=== PATIENT | female | born 1970 | race Caucasian/White ===

== ENCOUNTER 2021-12-05 12:12 | Emergency (ER) | payer OTHER, MEDICAID, SELFPAY ==
--- NOTE | ~2021-12-05 | XR_ITS ---
EXAMINATION: XR CHEST CLINICAL INFORMATION: Shortness of breath, cough and weakness COMPARISON: None TECHNIQUE: 2 views of the chest were obtained. FINDINGS: No significant abnormality is noted involving the heart, lungs, mediastinum, bony thorax or soft tissues. XR/XR chest 2V IMPRESSION: Unremarkable examination.
[2021-12-05 13:16] VITALS: BP 144/82; PULSE 84; RESP 16; TEMP 36.1; O2SAT 97; BMI 23.1
[2021-12-05 13:53] LABS: COVID-19 Test Negative (Negative); IDNOW Serial# 16C4AD1C
[2021-12-05 14:08] LABS: Strep A Nucleic Acid Negative (Negative)
[2021-12-05 14:34] LABS: MANUAL DIFF FLAG NO
[2021-12-05 14:39] LABS: Basophils Percent Auto 0.4 % (0-2); Eosinophils Absolute Auto 0.2 X10*3/uL (0.0-0.4); Eosinophils Percent Auto 4.8 % (0-4); Hematocrit 39.2 % (37.0-47.0); Hemoglobin 12.8 g/dl (12.0-16.0); Imm Gran Abs Auto 0.01 X10*3/uL (0.00-0.03); Imm Gran Pct Auto 0.2 % (0.0-0.4); Lymphocytes Absolute Auto 1.7 X10*3/uL (1.2-4.9); Lymphocytes Percent Auto 36.4 % (20-40); Mean Corpuscular HGB Conc 32.7 g/dl (31.0-35.0); Mean Corpuscular Hemoglobin 28.6 pg (27.0-33.0); Mean Corpuscular Volume 87.7 fL (80.0-98.0); Mean Platelet Volume 9.1 fL (9.4-12.3); Monocytes Absolute Auto 0.3 X10*3/uL (0.1-1.2); Monocytes Percent Auto 6.6 % (2-11); Neutrophils Absolute Auto 2.4 x10*3/uL (2.0-8.3); Neutrophils Percent Auto 51.6 % (45-73); Platelet Count 186 X10*3/uL (160-400); Red Blood Count 4.47 X10*6/uL (4.20-5.50); Red Cell Distribution Width 13.7 % (11.0-16.0); White Blood Count 4.6 X10*3/uL (4.8-10.8)
[2021-12-05 14:55] LABS: Anion Gap 11 (12-20); Blood Urea Nitrogen 13 mg/dL (9-16); Calcium 8.9 mg/dL (8.4-10.2); Carbon Dioxide 26 mmol/L (22-29); Chloride 105 mmol/L (96-108); Creatinine Clr Calc Pharmacy 59.8; Estimated Glomerular Filt Rate > 60; Glucose Random 122 mg/dL (60-115); Potassium 4.1 mmol/L (3.3-5.1); Sodium 138 mmol/L (135-145)
[2021-12-05 16:36] VITALS: BP 141/81; PULSE 77; RESP 16; O2SAT 98
[2021-12-05 18:10] VITALS: BP 153/79; PULSE 90; RESP 18; TEMP 37.4; O2SAT 98; O2SAT 99
[2021-12-05] MEDS: predniSONE 20 MG TABLET 40 MG PO (18:12)
[2021-12-05 18:14] VITALS: PULSE 87; RESP 20; O2SAT 99
[2021-12-05] MEDS: Albuterol Sulfate (0.083%) 2.5 MG/3 ML VIAL.NEB 5 MG INHALE (18:14)
[2021-12-05] MEDS: Albuterol/Iprat 2.5/0.5MG 3 ML AMPUL.NEB INHALE (18:14)
--- NOTE | 2021-12-05 18:24 | ED.URI ---
HPI - URI/Sore Throat General Chief Complaint: Upper Respiratory Symptoms Stated Complaint: possible Pneumonia Time Seen by Provider: 12/05/21 18:00 Source: patient and family Mode of arrival: ambulatory Limitations: no limitations History of Present Illness HPI Narrative: 51-year-old female came in for evaluation of sore throat and coughing. Patient's symptoms started with sore throat, coughing, generalized body ache, chest tightness and wheezing, and headache symptoms started over 2 weeks ago, patient was exposed to a sick contact that was diagnosed with pneumonia, patient also been complaining of chest pain only with coughing, no recent travel, no lower extremity swelling or tenderness, no history of blood clots. Patient was seen at an urgent care a week ago and was started on a course of Z-Oswaldo antibiotic with temporary improvement. Patient is here today for further evaluation. Related Data Previous Rx's Medication Instructions Recorded albuterol sulfate 90 mcg/actuation 1 inh INHALATION QID PRN #8.5 g 12/05/21 aerosol inhaler (ProAir HFA) azithromycin 250 mg tablet See Rx Instructions .ROUTE 12/05/21 (Zithromax Z-Oswaldo) .COMPLEX #6 tab prednisone 20 mg tablet 20 mg PO BID #8 tab 12/05/21 Allergies Allergy/AdvReac Type Severity Reaction Status Date / Time No Known Allergies Allergy Unverified 03/28/20 19:42 [No Known Allergies*] Review of Systems Review of Systems: All other systems are reviewed and are negative Constitutional: Reports as per HPI and Reports no additional constitutional complaints Eyes: Reports as per HPI and Reports no additional eye complaints Reports system reviewed and no additional complaints, except as documented Cardiovascular: Reports as per HPI and Reports no additional cardiovascular complaints Respiratory: Reports as per HPI and Reports no additional respiratory complaints Gastrointestinal: Reports as per HPI and Reports no additional gastrointestinal complaints Genitourinary: Reports no additional female genitourinary complaints Musculoskeletal: Reports no additional musculoskeletal complaints Skin/Breast: Reports system reviewed and no additional complaints, except as docu Psychiatric: Reports no additional psychiatric complaints Endocrine: Reports no additional endocrine complaints Hematologic/Lymphatic: Reports no additional hematologic/lymphatic complaints Allergic/Immunologic: Reports no additional allergic/immunologic complaints Reports system reviewed and no additional complaints, except as documented and Reports Abnormal speech present [facility] Social History Social History Advance Directives: No Advance Directives Information Provided: No Physical Exam Vital Signs: Vital Signs: Last Vital Signs Temp 99.3 F 12/05/21 18:10 Pulse 87 12/05/21 18:14 Resp 20 12/05/21 18:14 BP 153/79 H 12/05/21 18:10 Pulse Ox 99 12/05/21 18:10 BMI result Body Mass Index 23.1 Vital signs have been reviewed as appeared to be correct. Blood pressure normal. Heart rate normal. Respiration rate normal. Temperature normal. Oxygen saturation normal. Appearance: Alert. Oriented X3. No acute distress. Head: Normal external exam. Normocephalic. Atraumatic. No Ramos signs noted. No raccoon eyes noted Eyes: PERRLA. EOMI. Conjunctiva and sclera normal. Eyelids normal. ENT: TM's Normal. Pharynx normal. Uvula midline. Moist mucous membranes. No trismus noted. No drooling noted. No muffled voice noted. Neck: Normal inspection. Neck supple. FROM. No adenopathy. Thyroid Normal. No meningeal signs. No neck mass noted. CVS: Normal heart rate and rhythm. Heart sound normal. No murmurs noted. Pulses normal throughout. Respiratory: No respiratory distress. Painless inspiration. Breath sounds normal. Mild diffuse expiratory wheezing with prolonged expiration. Chest nontender. No accessory muscle usage noted or decreased air movement noted. Abdomen: Soft and nontender. Bowel sounds normal in all 4 quadrants. No distention noted. No organomegaly noted. No visible injury noted. Back: No CVA tenderness. Full range of motion noted. Skin: Skin warm and dry. Normal skin color. Normal skin turgor. No rashes/lesions/lacerations noted. Extremities: No lower extremity edema. Extremities exhibit normal range of motion. Extremities nontender. Neuro: Oriented X 3. Cranial nerve exam: II-XII are grossly intact No motor deficit. No sensory deficit. Reflexes normal. Course Course Course Narrative: Assessment and plan. 51-year-old female came in with coughing, chest pain only with coughing, tightness and shortness of breath. Recent exposure to a sick contact with pneumonia. 1. Chest x-ray is negative for pneumonia. 2. Negative for viral respiratory panel. 3. Patient is nonsmoker no known history of COPD/asthma or emphysema. 4. At low risk for PE with negative D-dimer. 5. Exam is more consistent with bronchitis will start the patient on bronchodilator/prednisone/course of Z-Oswaldo. Patient showed improvement after bronchodilator/prednisone in the emergency department. MDM - URI/Sore Throat Lab Data Attestation: I reviewed the patient's lab results. Result diagrams: 12/05/21 14:27 12/05/21 14:27 Labs: Lab Results 12/05/21 12/05/21 12/05/21 Range/Units 13:30 13:30 14:27 WBC 4.6 L (4.8-10.8) X10*3/uL RBC 4.47 (4.20-5.50) X10*6/uL Hgb 12.8 (12.0-16.0) g/dl Hct 39.2 (37.0-47.0) % MCV 87.7 (80.0-98.0) fL MCH 28.6 (27.0-33.0) pg MCHC 32.7 (31.0-35.0) g/dl RDW 13.7 (11.0-16.0) % Plt Count 186 (160-400) X10*3/uL MPV 9.1 L (9.4-12.3) fL Immature Gran % (Auto) 0.2 (0.0-0.4) % Neut % (Auto) 51.6 (45-73) % Lymph % (Auto) 36.4 (20-40) % Zapata % (Auto) 6.6 (2-11) % Eos % (Auto) 4.8 H (0-4) % Baso % (Auto) 0.4 (0-2) % Lymph # (Auto) 1.7 (1.2-4.9) X10*3/uL Zapata # (Auto) 0.3 (0.1-1.2) X10*3/uL Eos # (Auto) 0.2 (0.0-0.4) X10*3/uL Baso # (Auto) 0.0 (0.0-0.2) X10*3/uL Abs Immat Gran (auto) 0.01 (0.00-0.03) X10*3/uL Absolute Neuts (auto) 2.4 (2.0-8.3) x10*3/uL Absolute Nucleated RBC 0.000 (0.0-0.012) X10*3/uL Nucleated RBC % (auto) 0.0 (0.0-0.2) /100WBC D-Dimer High Sensitivty NG/ML Sodium (135-145) mmol/L Potassium (3.3-5.1) mmol/L Chloride (96-108) mmol/L Carbon Dioxide (22-29) mmol/L Anion Gap (12-20) BUN (9-16) mg/dL Creatinine (0.5-1.4) mg/dL Estim Creat Clear Calc Estimated GFR Random Glucose (60-115) mg/dL Calcium (8.4-10.2) mg/dL Troponin I High Sens (<3.5-17.0) ng/L COVID-19 (JUAN ALBERTO) Negative (Negative) COVID-19 Clin Com See Note Influenza Type A (PCR) (Negative) Influenza Type B (PCR) (Negative) RSV RNA Qual (PCR) (Negative) SARS-CoV-2 RNA (RT-PCR) (Negative) S. pyogenes GrpA JUAN Negative (Negative) 12/05/21 12/05/21 12/05/21 Range/Units 14:27 18:32 18:32 WBC (4.8-10.8) X10*3/uL RBC (4.20-5.50) X10*6/uL Hgb (12.0-16.0) g/dl Hct (37.0-47.0) % MCV (80.0-98.0) fL MCH (27.0-33.0) pg MCHC (31.0-35.0) g/dl RDW (11.0-16.0) % Plt Count (160-400) X10*3/uL MPV (9.4-12.3) fL Immature Gran % (Auto) (0.0-0.4) % Neut % (Auto) (45-73) % Lymph % (Auto) (20-40) % Zapata % (Auto) (2-11) % Eos % (Auto) (0-4) % Baso % (Auto) (0-2) % Lymph # (Auto) (1.2-4.9) X10*3/uL Zapata # (Auto) (0.1-1.2) X10*3/uL Eos # (Auto) (0.0-0.4) X10*3/uL Baso # (Auto) (0.0-0.2) X10*3/uL Abs Immat Gran (auto) (0.00-0.03) X10*3/uL Absolute Neuts (auto) (2.0-8.3) x10*3/uL Absolute Nucleated RBC (0.0-0.012) X10*3/uL Nucleated RBC % (auto) (0.0-0.2) /100WBC D-Dimer High Sensitivty < 150 NG/ML Sodium 138 (135-145) mmol/L Potassium 4.1 (3.3-5.1) mmol/L Chloride 105 (96-108) mmol/L Carbon Dioxide 26 (22-29) mmol/L Anion Gap 11 L (12-20) BUN 13 (9-16) mg/dL Creatinine 0.94 (0.5-1.4) mg/dL Estim Creat Clear Calc 59.8 Estimated GFR > 60 Random Glucose 122 H (60-115) mg/dL Calcium 8.9 (8.4-10.2) mg/dL Troponin I High Sens < 3.5 (<3.5-17.0) ng/L COVID-19 (JUAN ALBERTO) (Negative) COVID-19 Clin Com Influenza Type A (PCR) (Negative) Influenza Type B (PCR) (Negative) RSV RNA Qual (PCR) (Negative) SARS-CoV-2 RNA (RT-PCR) (Negative) S. pyogenes GrpA JUAN (Negative) 12/05/21 Range/Units 18:35 WBC (4.8-10.8) X10*3/uL RBC (4.20-5.50) X10*6/uL Hgb (12.0-16.0) g/dl Hct (37.0-47.0) % MCV (80.0-98.0) fL MCH (27.0-33.0) pg MCHC (31.0-35.0) g/dl RDW (11.0-16.0) % Plt Count (160-400) X10*3/uL MPV (9.4-12.3) fL Immature Gran % (Auto) (0.0-0.4) % Neut % (Auto) (45-73) % Lymph % (Auto) (20-40) % Zapata % (Auto) (2-11) % Eos % (Auto) (0-4) % Baso % (Auto) (0-2) % Lymph # (Auto) (1.2-4.9) X10*3/uL Zapata # (Auto) (0.1-1.2) X10*3/uL Eos # (Auto) (0.0-0.4) X10*3/uL Baso # (Auto) (0.0-0.2) X10*3/uL Abs Immat Gran (auto) (0.00-0.03) X10*3/uL Absolute Neuts (auto) (2.0-8.3) x10*3/uL Absolute Nucleated RBC (0.0-0.012) X10*3/uL Nucleated RBC % (auto) (0.0-0.2) /100WBC D-Dimer High Sensitivty NG/ML Sodium (135-145) mmol/L Potassium (3.3-5.1) mmol/L Chloride (96-108) mmol/L Carbon Dioxide (22-29) mmol/L Anion Gap (12-20) BUN (9-16) mg/dL Creatinine (0.5-1.4) mg/dL Estim Creat Clear Calc Estimated GFR Random Glucose (60-115) mg/dL Calcium (8.4-10.2) mg/dL Troponin I High Sens (<3.5-17.0) ng/L COVID-19 (JUAN ALBERTO) (Negative) COVID-19 Clin Com Influenza Type A (PCR) NEGATIVE (Negative) Influenza Type B (PCR) NEGATIVE (Negative) RSV RNA Qual (PCR) NEGATIVE (Negative) SARS-CoV-2 RNA (RT-PCR) NEGATIVE (Negative) S. pyogenes GrpA JUAN (Negative) Imaging Data Chest x-ray: Attestation: I personally reviewed and interpreted this imaging study as follows: Radiologist's impression: Unremarkable examination. Discharge Plan Discharge Clinical Impression: Upper respiratory infection, Bronchitis Patient Disposition: Home, Self-Care Instructions: Acute Bronchitis (ED) Prescriptions: New prednisone 20 mg tablet 20 mg PO BID Qty: 8 0RF albuterol sulfate [ProAir HFA] 90 mcg/actuation HFA aerosol inhaler 1 inh inhalation QID PRN (Reason: shortness of breath or wheezing) Qty: 8.5 0RF azithromycin [Zithromax Z-Oswaldo] 250 mg tablet See Rx Instructions .ROUTE .COMPLEX Qty: 6 0RF Rx Instructions: For 250 mg dose pack: take 500 mg today (day 1), then 250 mg for 4 days (days 2-5) Referrals: Edil Patel MD [Primary Care Provider] - Stand Alone Forms: Work/School Release
[2021-12-05 19:08] LABS: Troponin-I High Sensitivity < 3.5 ng/L (<3.5-17.0)
[2021-12-05 19:20] LABS: Influenza A PCR NEGATIVE (Negative); Influenza B PCR NEGATIVE (Negative); Resp Syncy Virus RNA Qual PCR NEGATIVE (Negative); SARS COV2 PCR INHOUSE NEGATIVE (Negative)
[2021-12-05 19:36] LABS: D Dimer High Sensitivity < 150 NG/ML
[2021-12-05 20:03] VITALS: BP 127/72; PULSE 100; RESP 20; TEMP 37.1
== END 2021-12-05 20:31 | disposition home or self-care (01) ==
PROVIDERS: Emergency Provider Emergency Medicine; PCP Internal Medicine
DX: J06.9 Acute upper respiratory infection, unspecified (principal); J40 Bronchitis, not specified as acute or chronic; Z20.822 Contact with and (suspected) exposure to COVID-19; J02.9 Acute pharyngitis, unspecified
CPT/HCPCS: 0241U; 36415; 71046; 80048; 84484; 85025; 85379; 87635; 87651; 94640; 94644; 99284

== ENCOUNTER 2022-03-25 11:03 | Emergency (ER) | payer OTHER, SELFPAY ==
--- NOTE | ~2022-03-25 | XR_ITS ---
EXAMINATION: X-RAY LEFT ANKLE X-RAY LEFT CLINICAL INFORMATION: Fall, pain, swelling COMPARISON: None TECHNIQUE: Ankle 2 views. Foot 3 views. FINDINGS: Ankle: Lateral ankle soft tissue swelling. No acute fractures seen of the tibia or fibula. Ankle mortise is maintained. Talar head finding described below. No acute fracture is otherwise seen. Foot: Skin marker positioned lateral to the foot at the level of the cuboid. There is dorsal foot soft tissue swelling. There are ill-defined ossific densities positioned along the dorsal aspect of the talar head/talonavicular joint, slightly displaced from the underlying bone. This could represent an avulsion fracture, of indeterminate age. No definite cuboid, calcaneal fractures identified. Incidental note of an os peroneum. Fifth metatarsal base appears intact. No acute osseous findings otherwise seen. Tarsometatarsal alignment is within normal limits. XR/XR ankle LT 2V IMPRESSION: 1. Dorsal soft tissue swelling of the foot. Multiple ill-defined ossific densities dorsal to the talar head/talonavicular joint, raises a possibility avulsion fracture, of indeterminate age. Clinically correlate. Further evaluation with MRI as clinically warranted. 2. Lateral ankle soft tissue swelling. No acute tibial or fibular fractures identified. 3. Additional findings and details as above.
--- NOTE | ~2022-03-25 | XR_ITS ---
EXAMINATION: X-RAY LEFT ANKLE X-RAY LEFT CLINICAL INFORMATION: Fall, pain, swelling COMPARISON: None TECHNIQUE: Ankle 2 views. Foot 3 views. FINDINGS: Ankle: Lateral ankle soft tissue swelling. No acute fractures seen of the tibia or fibula. Ankle mortise is maintained. Talar head finding described below. No acute fracture is otherwise seen. Foot: Skin marker positioned lateral to the foot at the level of the cuboid. There is dorsal foot soft tissue swelling. There are ill-defined ossific densities positioned along the dorsal aspect of the talar head/talonavicular joint, slightly displaced from the underlying bone. This could represent an avulsion fracture, of indeterminate age. No definite cuboid, calcaneal fractures identified. Incidental note of an os peroneum. Fifth metatarsal base appears intact. No acute osseous findings otherwise seen. Tarsometatarsal alignment is within normal limits. XR/XR foot LT 2V IMPRESSION: 1. Dorsal soft tissue swelling of the foot. Multiple ill-defined ossific densities dorsal to the talar head/talonavicular joint, raises a possibility avulsion fracture, of indeterminate age. Clinically correlate. Further evaluation with MRI as clinically warranted. 2. Lateral ankle soft tissue swelling. No acute tibial or fibular fractures identified. 3. Additional findings and details as above.
[2022-03-25 11:47] VITALS: BP 139/81; PULSE 70; RESP 16; TEMP 36.8; O2SAT 100; BMI 22.3
--- NOTE | 2022-03-25 16:51 | ED.LOWEXIN ---
HPI - Extremity Injury (Lower) General Chief Complaint: Extremity Injury, Lower Stated Complaint: fall 03/25/22 L foot swollen Time Seen by Provider: 03/25/22 11:46 Source: patient Mode of arrival: ambulatory Limitations: no limitations History of Present Illness HPI Narrative: 51-year-old female presents to the emergency department with complaints of left ankle pain status post rolling her ankle earlier today. Patient tells me she was walking her dog, her dog is currently training, the dog pulled her, she rolled her ankle out words, ever since then she has been experiencing pain and swelling to the left ankle. Patient tells me she feels intermittent numbness. However denies any tingling. Patient tells me she is ambulating with a limp and hurts when she bears weight on that extremity. She tells me she thinks that is fractured. When she fell she did not hit her head, no head strike, loss of consciousness. Patient not on blood thinners. Patient denies preceding symptoms to the fall. Denies chest pain, shortness of breath, headache, vision changes, dizziness, nausea, vomiting, abdominal pain. Related Data Previous Rx's Medication Instructions Recorded albuterol sulfate 90 mcg/actuation 1 inh inhalation QID PRN shortness 12/05/21 aerosol inhaler (ProAir HFA) of breath or wheezing #8.5 grams azithromycin 250 mg tablet See Rx Instructions PO .COMPLEX #6 12/05/21 (Zithromax Z-Oswaldo) tabs prednisone 20 mg tablet 20 mg PO BID #8 tabs 12/05/21 Allergies Allergy/AdvReac Type Severity Reaction Status Date / Time No Known Allergies Allergy Unverified 03/28/20 19:42 [No Known Allergies*] Review of Systems Review of Systems: Constitutional : No Weight loss, No Fever, No Chills, No Fatigue, No Malaise ENT/Mouth : No sore throat, No Rhinorrhea Eyes: No Eye Pain, No Swelling, No Redness Cardiovascular : No Chest Pain, No SOB, No Dyspnea on Exertion, No Orthopnea, No Edema, No Palpitations Respiratory : No Cough, No Sputum, No Wheezing Gastrointestinal : No Nausea, No Vomiting, No Diarrhea, No Constipation, No abdominal Pain, No Hematochezia, No Melena Genitourinary : No Dysuria, No Urinary Frequency, No Hematuria, Musculoskeletal : + joint pain, No Myalgias, + Joint Swelling Skin : No Skin Lesions, No rash Neuro : No Weakness, No Numbness, No Dizziness, No Headache Psych : No Anxiety/Panic, No Depression All other systems reviewed and are negative Yes all other systems are reviewed and are negative [facility] Past Medical History Attestation statement: The following information was validated with the patient. Source: old records reviewed and nursing notes reviewed Physical Exam Vital Signs: Vital Signs: Last Vital Signs Temp 98.2 F 03/25/22 11:47 Pulse 70 03/25/22 11:47 Resp 16 03/25/22 11:47 BP 139/81 03/25/22 11:47 Pulse Ox 100 03/25/22 11:47 O2 Del Method 03/25/22 11:47 BMI result Body Mass Index 22.3 vss Appearance: Alert.? Oriented X3.? No acute distress.? Head: Normocephalic, atraumatic, no step-offs or deformities Eyes: Pupils equal, round and reactive to light.? Neck: Normal inspection.? Neck supple.? CVS: Normal heart rate and rhythm.? Pulses normal.? Respiratory: No respiratory distress.? Breath sounds normal.? Abdomen: Soft and nontender.? Skin: Skin warm and dry.? Normal skin color.? Normal skin turgor.? Extremities: No lower extremity edema.? No calf ttp, negative dylan b/l. 5/5 strength to bilateral upper and lower extremities + dorsal soft tissue swelling of the left foot. There is edema to left lateral malleolus with pain with palpation. Patient ambulating with limp favoring the right side. 2+ dorsalis pedis, posterior tibialis and anterior tibialis pulses equal bilateral. 2+ DTRs in the patellar region. Capillary refill intact to bilateral lower extremity digits. Normal sensation. Neuro: Oriented X 3.? No motor deficit.? No sensory deficit. CN 2-12 intact Course Reevaluation(s) Reevaluation #1: Plain film shows dorsal soft tissue swelling and multiple ill-defined fossa Rosangela densities dorsal to the talar head/talonavicular joint ? avulsion fx, which is consistent with my history and physical examination. There is also lateral left soft tissue swelling is noted on exam. Patient will be placed in a walking boot and will be given crutches. Advised to follow-up with orthopedics. Advised to take ibuprofen every 6 hours, Tylenol every 4 as needed for pain or discomfort. Comfortable discharge home with prompt PCP and Ortho follow-up. Patient was placed in a walking boot and was given crutches and educated on proper use. I feel comfortable discharge home. I educated patient on RI CE Time: 16:54 MDM - Extremity Injury (Lower) MDM Narrative Medical decision making narrative: [id number] 51-year-old female presents with pain and swelling to the left ankle Physical examination significant for dorsal soft tissue swelling and lateral ankle soft tissue swelling. Neurovascularly intact. Concerns for fracture dislocation. No signs of compartment syndrome. Unlikely acute ligament or tendon tear. Will obtain a plain film Medical Records Attestation: I reviewed the patient's medical records. Lab Data Attestation: I reviewed the patient's lab results. Critical Care Time Critical Care Time Critical Care Time: No Discharge Plan Discharge Clinical Impression: Avulsion fracture Patient Disposition: Home, Self-Care Additional Instructions: Take your medications as prescribed. If you were prescribed antibiotics today, it is important that you take your medication to their entirety, do not skip any doses, do not finish them early. Follow-up with your primary care provider this week. Return to the emergency department with new or worsening symptoms. Such as fevers, chills, chest pain, shortness of breath, nausea, vomiting, dizziness, headache, vision changes, lethargy In case of emergency call 911 Please wear your walking boot as indicated and crutches RICE- as disscussed. Rest, ice, compress, elevate extremity. You can take ibuprofen every 6 hours, Tylenol every 4 as needed for pain or discomfort. XR/XR ankle LT 2V IMPRESSION: 1. Dorsal soft tissue swelling of the foot. Multiple ill-defined ossific densities dorsal to the talar head/talonavicular joint, raises a possibility avulsion fracture, of indeterminate age. Clinically correlate. Further evaluation with MRI as clinically warranted. ? 2. Lateral ankle soft tissue swelling. No acute tibial or fibular fractures identified. ? 3. Additional findings and details as above Prescriptions: No Action prednisone 20 mg tablet 20 mg PO BID Qty: 8 0RF albuterol sulfate [ProAir HFA] 90 mcg/actuation HFA aerosol inhaler 1 inh inhalation QID PRN (Reason: shortness of breath or wheezing) Qty: 8.5 0RF azithromycin [Zithromax Z-Oswaldo] 250 mg tablet See Rx Instructions .ROUTE .COMPLEX Qty: 6 0RF Rx Instructions: For 250 mg dose pack: take 500 mg today (day 1), then 250 mg for 4 days (days 2-5) Referrals: [facility] – [place] [facility] [Provider Group] - 1 week Edil Patel MD [Primary Care Provider] - 2 days
== END 2022-03-25 18:00 | disposition home or self-care (01) ==
PROVIDERS: Emergency Provider Emergency Medicine Emergency Medical Services; PCP Internal Medicine
DX: S82.892A Other fracture of left lower leg, initial encounter for closed fracture (principal); M79.672 Pain in left foot; X58.XXXA Exposure to other specified factors, initial encounter; Y93.9 Activity, unspecified; Y92.9 Unspecified place or not applicable; Y99.9 Unspecified external cause status
CPT/HCPCS: 73600; 73620; 99282; 99283

== ENCOUNTER → 2022-04-07 14:03 | Outpatient (BNVA) | payer OTHER, MEDICAID, SELFPAY | PROVIDERS: PCP Internal Medicine; Visit Provider Physician Assistant | DX: S93.402A Sprain of unspecified ligament of left ankle, initial encounter (principal); S99.922A Unspecified injury of left foot, initial encounter | CPT/HCPCS: 99202 ==

== ENCOUNTER 2022-05-05 | Outpatient (REF) | payer OTHER, SELFPAY ==
--- NOTE | ~2022-05-05 | XR_ITS ---
EXAMINATION: XR ANKLE, LEFT CLINICAL INFORMATION: Pain. COMPARISON: Radiograph of the left ankle 03/25/2022. TECHNIQUE: AP, lateral, and mortise views of the left ankle. FINDINGS: Redemonstration of dorsal soft tissue swelling with ill-defined ossific/calcific densities dorsal to the talar head/talonavicular joint. The ankle mortise is maintained.. Redemonstration of os peroneum. No new findings compared to 03/25/2022. XR/XR ankle LT min 3V IMPRESSION: Redemonstration of ill-defined ossific/calcific densities dorsal to the talar head/talonavicular joint with associated soft tissue swelling. These findings could be associated with an avulsion fracture. Examination is unchanged when compared to 03/25/2022.
== END 2022-05-05 00:01 | disposition home or self-care (01) ==
LOC: HO.HOSX
PROVIDERS: Visit Provider Physician Assistant
DX: M25.572 Pain in left ankle and joints of left foot (principal)
CPT/HCPCS: 73610

== ENCOUNTER → 2022-05-06 13:17 | Outpatient (BNVA) | payer OTHER, SELFPAY | PROVIDERS: PCP Internal Medicine; Visit Provider Physician Assistant | DX: S93.402D Sprain of unspecified ligament of left ankle, subsequent encounter (principal) | CPT/HCPCS: 99212 ==